=== PATIENT | female | born 1945 | race Caucasian/White ===

== ENCOUNTER 2023-09-25 15:04 | Emergency (ER) | payer MEDICARE ==
[2023-09-25 15:26] VITALS: BP 155/70; O2SAT 99
--- NOTE | 2023-09-25 15:28 | ED Physician Documentation ---
PD HPI WOUND RECHECK - Stated complaint Stated Complaint: LT LEG WOUND PX - Chief complaint Chief Complaint: Wound - Histroy obtained from History obtained from: Patient - Additional information Additional information: 78-year-old woman had a basal cell carcinoma removed 13 days ago by her psychologist chief in [place]. She is appear visiting over the last couple of days has noticed increased pain and redness around the wound which is on the right medial calf. No fevers or chills. Noted allergy to Keflex with reaction of hives. 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 HEENT: Tonsil/Adenoidectomy Derm: Skin cancer surgery - Present Medications Home Medications: Ambulatory Orders Medication Instructions Recorded Confirmed Apixaban [Eliquis] 5 mg ORAL BID 09/25/23 09/25/23 Atorvastatin [Lipitor] 10 mg ORAL DAILY 09/25/23 09/25/23 Doxycycline [Vibramycin] 100 mg PO BID #14 tablet 09/25/23 - Allergies Allergies/Adverse Reactions: Allergies Allergy/AdvReac Type Severity Reaction Status Date / Time cephalexin Allergy Hives Verified 09/25/23 15:12 - Social History Does the pt smoke?: No Smoking Status: Never smoker Does the pt drink ETOH?: Yes ETOH Use: Wine, Liquor Does the pt have substance abuse?: No - Immunizations Immunizations are current?: Yes - POLST Patient has POLST: No PD ED PE NORMAL - Vitals Vital signs reviewed: Yes - General General: Alert and oriented X 3, No acute distress - Back Back: No CVA TTP, No spinal TTP - Extremities Extremities: Other (There is a 4 cm vertical incision on the left lower leg, medial to the tibia with mild cellulitis. There is a single suture in place which was removed during examination and replaced with Steri-Strips. There was a slightly purulent base to the incision which was cultured.) - Neuro Neuro: Alert and oriented X 3 Results - Vitals Vitals: Vital Signs - 24 hr 09/25/23 15:12 Temperature 37 C Heart Rate 83 Respiratory 16 Rate Blood Pressure 155/70 H O2 Saturation 99 Oxygen O2 Source Room air PD Medical Decision Making - ED course ED course: Mild wound infection after dermatologic surgery. It was cultured, single suture removed and replaced with Steri-Strips and put on doxycycline. Departure - Departure Disposition: 01 Home, Self Care Clinical Impression: Wound cellulitis after surgery Condition: Good Record reviewed to determine appropriate education?: Yes Instructions: ED Wound Care Prescriptions: Doxycycline [Vibramycin] 100 mg PO BID #14 tablet Comments: I sent your prescriptions electronically to the [facility] in [place]. Stay out of the sun while on the antibiotic. Follow-up with your psychologist chief on Tuesday as scheduled. Let him or her know that we removed the suture in there. We are performing a wound culture, the results should be done in 48-72 hours. If antibiotic change is necessary we will call you. Return if worse in the me antime, especially if you develop increased pain, fevers, cannot keep down the medication. Otherwise follow-up with your physician in approximately 2-3 days. Forms: PCP List
--- NOTE | 2023-09-27 12:01 | ED Physician Documentation ---
ED Addendum - Addendum Addendum: 09/27/23 12:01 Left voicemail to call back regarding culture results. 09/27/23 12:15 She called back. We discussed her culture results which are still in progress but 1 isolate is Enterobacter which I would not expect to be sensitive to the doxycycline. That said she says just with the removal of the stitch and local wound care she is doing much better and she has minimal residual symptoms. As such I told her to continue the antibiotics but to call us back if it gets worse. Since the culture is still in progress there may be a second isolate 2. She will see her office engineer tomorrow.
== END 2023-09-25 15:39 | disposition home or self-care (01) ==
LOC: ED 15:04
DX: L76.82 Other postprocedural complications of skin and subcutaneous tissue (principal); L03.116 Cellulitis of left lower limb; Y83.8 Other surgical procedures as the cause of abnormal reaction of the patient, or of later complication, without mention of misadventure at the time of the procedure
CPT/HCPCS: 87070; 87077; 87181; 87205; 99283; 99284